=== PATIENT | male | born 1960 | race African-American/Black ===

== ENCOUNTER 2018-09-13 22:28 | Inpatient (IN) | payer MEDICAID ==
[~2018-09-13] VITALS: Ht 180.3 cm; Wt 97.5 kg
[2018-09-13] MEDS ORDERED: KETOROLAC 30MG/ML VIAL IM ONE (23:15)
[2018-09-13 23:31] LABS: BASOPHILS % 0.4 % (0.0-2.0); HEMATOCRIT. 39.8 % (42.0-52.0); LYMPHOCYTES % 45.6 % (20.0-50.0); MEAN CORPUSCULAR HEMOGLOBIN 37.7 pg (28.0-32.0); MEAN CORPUSCULAR VOLUME 107.2 fL (80.0-94.0); MEAN PLATELET VOLUME 7.7 fl (7.4-10.4); MONOCYTES % 13.3 % (2.0-8.0); NEUTROPHILS % 36.7 % (40.0-76.0); PLATELET 106 x1000/uL (130-400); RED BLOOD CELL COUNT 3.72 mill/uL (4.7-6.1); RED CELL DISTRIBUTION WIDTH 13.9 % (11.6-14.6)
[2018-09-13 23:37] LABS: CHLORIDE 107 mEq/L (98-107)
[2018-09-14] MEDS ORDERED: ENOXAPARIN 80MG/0.8ML SYR SUBCUT ONE (00:15)
[2018-09-14 03:10] VITALS: BP 141/82
[2018-09-14 04:00] VITALS: BP 141/82
[2018-09-14] MEDS ORDERED: ASPI-1393 MT (04:02)
[2018-09-14] MEDS ORDERED: ALBU6.7H9 INH (04:02)
[2018-09-14] MEDS ORDERED: LISI-604 PO (04:02)
[2018-09-14] MEDS ORDERED: HYDR12.54 MT (04:02)
[2018-09-14] MEDS ORDERED: PHEN100C12 PO (04:02)
[2018-09-14] MEDS ORDERED: AMLO10TA80 MT (04:02)
[2018-09-14] MEDS ORDERED: LEVE500T19 MT (04:02)
[2018-09-14] MEDS ORDERED: IPRATROPIUM/ALBUTEROL 0.5-3(2.5)MG/3ML NEB HHN PRN (04:30)
[2018-09-14] MEDS ORDERED: ACETAMINOPHEN 325MG TABLET PO PRN (04:30)
[2018-09-14 08:00] VITALS: BP 143/84
[2018-09-14] MEDS: LEVETIRACETAM 500MG TABLET PO SCH ×2 (08:17→17:22)
[2018-09-14] MEDS: LISINOPRIL 20MG TABLET PO SCH (08:18)
[2018-09-14] MEDS: HYDROCHLOROTHIAZIDE 12.5MG CAPSULE PO SCH (08:18)
[2018-09-14] MEDS: AMLODIPINE 10MG TABLET PO SCH (08:18)
[2018-09-14 08:26] LABS: HEMATOCRIT. 37.7 % (42.0-52.0); MEAN CORPUSCULAR HEMOGLOBIN 37.2 pg (28.0-32.0); MEAN CORPUSCULAR VOLUME 108.1 fL (80.0-94.0); MEAN PLATELET VOLUME 7.9 fl (7.4-10.4); PLATELET 221 x1000/uL (130-400); RED BLOOD CELL COUNT 3.49 mill/uL (4.7-6.1); RED CELL DISTRIBUTION WIDTH 14.6 % (11.6-14.6)
[2018-09-14 08:47] LABS: BG BASE EXCESS -0.5 mmol/L (-2.0-2.0); BG CARBOXYHEMOGLOBIN 0.7 % (0.5-1.5); BG DEOXYHEMOGLOBIN 2.3 % (0.0-5.0); BG FRACTION INSPIRED OXYGEN 21; BG HCO3 ACT 22.1 mmol/L (22.0-26.0); BG METHEMOGLOBIN 0.3 % (0.0-1.5); BG OXYGEN SATURATION 97.7 % (92.0-98.5); BG OXYHEMOGLOBIN 96.7 % (94.0-97.0); BG PCO2 30.6 mmHg (35.0-45.0); BG PH 7.477 (7.350-7.450); BG PO2 106.2 mmHg (75.0-100.0); BG SAMPLE SITE RIGHT RADIAL; BG TOTAL HEMOGLOBIN 13.3 g/dL (12.0-18.0); BG VENT MODE ROOM AIR
[2018-09-14 08:52] LABS: CHLORIDE 105 mEq/L (98-107)
[2018-09-14] MEDS ORDERED: HYDROCHLOROTHIAZIDE PO SCH (09:00)
[2018-09-14] MEDS ORDERED: IOHEXOL-350 100 ML BOTTLE ONE (09:22)
[2018-09-14] MEDS: APIXABAN 5 MG TABLET PO SCH ×2 (09:51→21:47)
[2018-09-14 12:00] VITALS: BP_SYST 129; BP_SYST 138; BP_DIAS 74; BP_DIAS 75
[2018-09-14] MEDS ORDERED: ENOXAPARIN 100MG/ML SYR SUBCUT SCH (14:00)
[2018-09-14] MEDS ORDERED: IPRATROPIUM/ALBUTEROL 0.5-3(2.5)MG/3ML NEB INH PRN (15:15)
[2018-09-14] MEDS ORDERED: ONDANSETRON HCL 4MG/2ML INJ IV PRN (15:15)
[2018-09-14] MEDS ORDERED: MAGNESIUM/ALUMINUM HYDROXIDE/SIMETHICONE 30ML UDC PO PRN (15:15)
[2018-09-14] MEDS ORDERED: CLONIDINE 0.1MG TABLET PO PRN (15:15)
[2018-09-14] MEDS ORDERED: GUAIFENESIN 200MG/10ML SUGAR FREE UDC PO PRN (15:15)
[2018-09-14 16:00] VITALS: BP 116/71
[2018-09-14 16:40] LABS: PLATELET ESTIMATE NORMAL
[2018-09-14] MEDS: ACETAMINOPHEN 325MG TABLET PO PRN (17:24)
[2018-09-14 20:00] VITALS: BP 122/71
[2018-09-14] MEDS ORDERED: PHENYTOIN SODIUM EXTENDED 100MG CAPSULE PO SCH ×2 (21:00)
[2018-09-14] MEDS: PHENYTOIN SODIUM EXTENDED 100MG CAPSULE PO SCH (21:48)
[2018-09-15] VITALS: BP 111/73
[2018-09-15 04:00] VITALS: BP 113/73
[2018-09-15 08:00] VITALS: BP 127/78
[2018-09-15] MEDS: AMLODIPINE 10MG TABLET PO SCH (09:13)
[2018-09-15] MEDS: HYDROCHLOROTHIAZIDE 12.5MG CAPSULE PO SCH (09:13)
[2018-09-15] MEDS: LISINOPRIL 20MG TABLET PO SCH (09:14)
[2018-09-15] MEDS: ARIPIPRAZOLE 2MG TABLET PO SCH (09:14)
[2018-09-15] MEDS: LEVETIRACETAM 500MG TABLET PO SCH ×2 (09:15→17:03)
[2018-09-15] MEDS: ACETAMINOPHEN 325MG TABLET PO PRN (09:15)
[2018-09-15] MEDS: APIXABAN 5 MG TABLET PO SCH ×2 (09:19→20:59)
[2018-09-15] MEDS ORDERED: DEXTROSE 50% WATER 50ML SYRINGE IV NR (10:45)
[2018-09-15 11:34] VITALS: BP 141/84
[2018-09-15 15:38] VITALS: BP 114/70
[2018-09-15 20:00] VITALS: BP 113/69
[2018-09-15] MEDS: PHENYTOIN SODIUM EXTENDED 100MG CAPSULE PO SCH (21:00)
[2018-09-16] VITALS: BP 101/68
[2018-09-16] MEDS: ACETAMINOPHEN 325MG TABLET PO PRN (02:10)
[2018-09-16 04:00] VITALS: BP 119/74
[2018-09-16 08:00] VITALS: BP 130/78
[2018-09-16] MEDS: HYDROCHLOROTHIAZIDE 12.5MG CAPSULE PO SCH (08:50)
[2018-09-16] MEDS: LEVETIRACETAM 500MG TABLET PO SCH ×2 (08:50→16:17)
[2018-09-16] MEDS: AMLODIPINE 10MG TABLET PO SCH (08:51)
[2018-09-16] MEDS: ARIPIPRAZOLE 2MG TABLET PO SCH (08:51)
[2018-09-16] MEDS: APIXABAN 5 MG TABLET PO SCH ×2 (08:52→20:52)
[2018-09-16] MEDS: LISINOPRIL 20MG TABLET PO SCH (09:00)
[2018-09-16] MEDS ORDERED: KETOROLAC 30MG/ML VIAL IV PRN (10:30)
[2018-09-16] MEDS: HYDROCODONE/ACETAMINOPHEN 5/325MG TABLET PO PRN ×2 (10:59→18:32)
[2018-09-16 11:39] VITALS: BP 131/80
[2018-09-16 16:00] VITALS: BP 104/48
[2018-09-16 18:03] LABS: BASOPHILS % 0.9 % (0.0-2.0); EOSINOPHILS % 2.6 % (0.0-5.0); HEMATOCRIT. 38.7 % (42.0-52.0); HEMOGLOBIN. 13.1 g/dL (14.0-18.0); LYMPHOCYTES % 24.2 % (20.0-50.0); MEAN CORPUSCULAR HEMOGLOBIN 36.4 pg (28.0-32.0); MEAN CORPUSCULAR VOLUME 107.9 fL (80.0-94.0); MEAN PLATELET VOLUME 8.7 fl (7.4-10.4); MONOCYTES % 12.7 % (2.0-8.0); NEUTROPHILS % 59.6 % (40.0-76.0); PLATELET 176 x1000/uL (130-400); RED BLOOD CELL COUNT 3.59 mill/uL (4.7-6.1); RED CELL DISTRIBUTION WIDTH 14.4 % (11.6-14.6)
[2018-09-16 18:12] LABS: CHLORIDE 102 mEq/L (98-107)
[2018-09-16 20:00] VITALS: BP 109/63
[2018-09-16] MEDS: PHENYTOIN SODIUM EXTENDED 100MG CAPSULE PO SCH (20:52)
[2018-09-17] VITALS: BP 123/76
[2018-09-17 04:00] VITALS: BP 123/73
[2018-09-17 06:32] LABS: CHLORIDE 102 mEq/L (98-107)
[2018-09-17 06:34] LABS: HEMATOCRIT. 37.6 % (42.0-52.0); MEAN CORPUSCULAR VOLUME 106.9 fL (80.0-94.0); MEAN PLATELET VOLUME 8.2 fl (7.4-10.4); PLATELET 210 x1000/uL (130-400); RED BLOOD CELL COUNT 3.52 mill/uL (4.7-6.1); RED CELL DISTRIBUTION WIDTH 14.4 % (11.6-14.6)
[2018-09-17 08:00] VITALS: BP 126/87
[2018-09-17] MEDS: LEVETIRACETAM 500MG TABLET PO SCH ×2 (08:27→16:56)
[2018-09-17] MEDS: AMLODIPINE 10MG TABLET PO SCH (08:27)
[2018-09-17] MEDS: ARIPIPRAZOLE 2MG TABLET PO SCH (08:27)
[2018-09-17] MEDS: LISINOPRIL 20MG TABLET PO SCH (08:28)
[2018-09-17] MEDS: HYDROCHLOROTHIAZIDE 12.5MG CAPSULE PO SCH (08:28)
[2018-09-17] MEDS: APIXABAN 5 MG TABLET PO SCH ×2 (08:29→22:15)
[2018-09-17] MEDS: HYDROCODONE/ACETAMINOPHEN 5/325MG TABLET PO PRN ×2 (08:29→16:57)
[2018-09-17 12:00] VITALS: BP 107/75
[2018-09-17 13:22] LABS: PLATELET ESTIMATE NORMAL
[2018-09-17 16:00] VITALS: BP 118/76
[2018-09-17 20:00] VITALS: BP 108/71
[2018-09-17] MEDS: PHENYTOIN SODIUM EXTENDED 100MG CAPSULE PO SCH (22:15)
[2018-09-18] VITALS: BP 103/62
[2018-09-18 04:00] VITALS: BP 110/70
[2018-09-18 06:19] LABS: BASOPHILS % 0.9 % (0.0-2.0); EOSINOPHILS % 3.4 % (0.0-5.0); HEMATOCRIT. 43.5 % (42.0-52.0); HEMOGLOBIN. 14.6 g/dL (14.0-18.0); LYMPHOCYTES % 27.7 % (20.0-50.0); MEAN CORPUSCULAR HEMOGLOBIN 36.9 pg (28.0-32.0); MEAN CORPUSCULAR VOLUME 109.8 fL (80.0-94.0); MEAN PLATELET VOLUME 8.1 fl (7.4-10.4); MONOCYTES % 14.3 % (2.0-8.0); NEUTROPHILS % 53.7 % (40.0-76.0); PLATELET 222 x1000/uL (130-400); RED BLOOD CELL COUNT 3.96 mill/uL (4.7-6.1); RED CELL DISTRIBUTION WIDTH 14.4 % (11.6-14.6)
[2018-09-18 06:20] LABS: CHLORIDE 100 mEq/L (98-107)
[2018-09-18 08:00] VITALS: BP 115/73
[2018-09-18] MEDS: ARIPIPRAZOLE 2MG TABLET PO SCH (08:46)
[2018-09-18] MEDS: LEVETIRACETAM 500MG TABLET PO SCH ×2 (08:46→16:13)
[2018-09-18] MEDS: APIXABAN 5 MG TABLET PO SCH ×2 (08:46→21:35)
[2018-09-18] MEDS: LISINOPRIL 20MG TABLET PO SCH (08:46)
[2018-09-18] MEDS: AMLODIPINE 10MG TABLET PO SCH (08:47)
[2018-09-18] MEDS: HYDROCHLOROTHIAZIDE 12.5MG CAPSULE PO SCH (09:15)
[2018-09-18] MEDS: HYDROCODONE/ACETAMINOPHEN 5/325MG TABLET PO PRN ×2 (11:40→19:31)
[2018-09-18 11:50] VITALS: BP 116/77
[2018-09-18 16:00] VITALS: BP 103/53
[2018-09-18] MEDS: PHENYTOIN SODIUM EXTENDED 100MG CAPSULE PO SCH (21:35)
[2018-09-19] VITALS: BP 124/70
[2018-09-19 04:00] VITALS: BP 125/71
[2018-09-19] MEDS: HYDROCODONE/ACETAMINOPHEN 5/325MG TABLET PO PRN ×2 (05:07→10:45)
[2018-09-19 08:00] VITALS: BP 136/83
[2018-09-19] MEDS: LEVETIRACETAM 500MG TABLET PO SCH ×2 (10:37→15:52)
[2018-09-19] MEDS: ARIPIPRAZOLE 2MG TABLET PO SCH (10:37)
[2018-09-19] MEDS: HYDROCHLOROTHIAZIDE 12.5MG CAPSULE PO SCH (10:37)
[2018-09-19] MEDS: AMLODIPINE 10MG TABLET PO SCH (10:37)
[2018-09-19] MEDS: LISINOPRIL 20MG TABLET PO SCH (10:38)
[2018-09-19 12:00] VITALS: BP 120/80
[2018-09-19] MEDS: APIXABAN 5 MG TABLET PO SCH (15:52)
[2018-09-19 16:00] VITALS: BP 130/84
[2018-09-19 18:54] LABS: HEMATOCRIT 40.1 % (42.0-52.0); HEMOGLOBIN 13.7 g/dL (14.0-18.0); MEAN CORPUSCULAR HEMOGLOBIN 36.9 pg (28.0-32.0); MEAN CORPUSCULAR VOLUME 107.8 fL (80.0-94.0); PLATELET 210 x1000/uL (130-400); RED BLOOD CELL COUNT 3.72 mill/uL (4.7-6.1); RED CELL DISTRIBUTION WIDTH 14.6 % (11.6-14.6)
[2018-09-19 19:00] LABS: CHLORIDE 101 mEq/L (98-107)
== END 2018-09-19 19:20 | DRG 197 ==
LOC: ER 22:48 → 6EST 09-14 01:33 → EDBEDREQTM 09-14 01:37 → EDBEDREQ 09-14 01:37 → ENRESERV 09-14 01:49
PROVIDERS: ADMIT Internal Medicine; ATTEND Internal Medicine
DX: I82.433 Acute embolism and thrombosis of popliteal vein, bilateral (principal); D68.59 Other primary thrombophilia; K75.9 Inflammatory liver disease, unspecified; D64.9 Anemia, unspecified; G40.909 Epilepsy, unspecified, not intractable, without status epilepticus; I10 Essential (primary) hypertension; M17.0 Bilateral primary osteoarthritis of knee; M06.9 Rheumatoid arthritis, unspecified; F32.9 Major depressive disorder, single episode, unspecified; Z96.659 Presence of unspecified artificial knee joint; Z96.653 Presence of artificial knee joint, bilateral; M19.90 Unspecified osteoarthritis, unspecified site; E16.2 Hypoglycemia, unspecified; Z82.49 Family history of ischemic heart disease and other diseases of the circulatory system; Z83.3 Family history of diabetes mellitus; Z79.01 Long term (current) use of anticoagulants; Z59.0 Homelessness; Z98.84 Bariatric surgery status; Z90.49 Acquired absence of other specified parts of digestive tract; Z79.899 Other long term (current) drug therapy; Z91.19 Patient's noncompliance with other medical treatment and regimen
CPT/HCPCS: 36415; 36600; 71045; 71275; 80048; 82375; 82805; 82962; 84443; 84484; 85027; 86430; 93005; 93970; 97116; 97162; 99285; J1650; J1885; Q9967

== ENCOUNTER 2018-11-19 19:01 | Emergency (ER) | payer MEDICAID ==
[~2018-11-19] VITALS: Ht 180.3 cm; Wt 105.0 kg
[~2018-11-19 19:01] MED LIST: ALBU6.7H9 INH; AMLO10TA80 MT; ASPI-1393 MT; HYDR12.54 MT; LEVE500T19 MT; LISI-604 PO; PHEN100C12 PO
[2018-11-19 19:08] VITALS: BP 146/90
== END 2018-11-19 22:25 | disposition left against medical advice (07) ==
LOC: ER 19:01
DX: Z53.21 Procedure and treatment not carried out due to patient leaving prior to being seen by health care provider (principal)

== ENCOUNTER 2018-11-20 00:27 | Emergency (ER) | payer MEDICAID ==
[~2018-11-20] VITALS: Ht 180.3 cm; Wt 106.0 kg
[2018-11-20] MEDS ORDERED: APIXABAN 5 MG TABLET PO STA (07:05)
[2018-11-20] MEDS ORDERED: LISINOPRIL 20MG TABLET PO ONE (07:15)
[2018-11-20] MEDS ORDERED: ASPIRIN 81MG TABLET PO ONE (07:15)
[2018-11-20] MEDS ORDERED: HYDROCHLOROTHIAZIDE 12.5MG CAPSULE PO ONE (07:15)
[2018-11-20] MEDS ORDERED: AMLODIPINE 10MG TABLET PO ONE (07:15)
[2018-11-20] MEDS ORDERED: LEVETIRACETAM 500MG TABLET PO ONE (07:15)
[2018-11-20 12:00] VITALS: BP 135/87
== END 2018-11-20 12:00 | disposition home or self-care (01) ==
LOC: ER 01:43
DX: M25.562 Pain in left knee (principal); Z91.81 History of falling; Z59.0 Homelessness
CPT/HCPCS: 73562; 99284; Z7610

== ENCOUNTER 2019-11-19 03:49 | Emergency (ER) | payer MEDICAID ==
[~2019-11-19] VITALS: Ht 180.3 cm; Wt 104.0 kg
[~2019-11-19 03:49] MED LIST changes: -ASPI-1393 MT; +ASPI-1497 MT
[2019-11-19] MEDS ORDERED: LEVETIRACETAM 1000MG/100ML 100 ML IV ONE (05:30)
[2019-11-19 06:00] LABS: BASOPHILS % 0.4 % (0.0-2.0); EOSINOPHILS % 0.9 % (0.0-5.0); HEMATOCRIT. 38.6 % (42.0-52.0); HEMOGLOBIN. 13.4 g/dL (14.0-18.0); LYMPHOCYTES % 16.9 % (20.0-50.0); MEAN CORPUSCULAR HEMOGLOBIN 37.6 pg (28.0-32.0); MEAN CORPUSCULAR VOLUME 108.7 fL (80.0-94.0); MEAN PLATELET VOLUME 8.6 fl (7.4-10.4); MONOCYTES % 8.9 % (2.0-8.0); NEUTROPHILS % 72.9 % (40.0-76.0); PLATELET 219 x1000/uL (130-400); RED BLOOD CELL COUNT 3.55 mill/uL (4.7-6.1); RED CELL DISTRIBUTION WIDTH 15.8 % (11.6-14.6)
[2019-11-19 06:07] LABS: CHLORIDE 102 mEq/L (98-107)
[2019-11-19 06:12] LABS: ETHANOL BLOOD 206 mg/dL
[2019-11-19 06:23] LABS: CLARITY URINE CLEAR (CLEAR); COLOR URINE YELLOW (YELLOW); KETONES URINE NEGATIVE (NEGATIVE); LEUKOCYTE ESTERASE URINE NEGATIVE (NEGATIVE); NITRITE URINE NEGATIVE (NEGATIVE); OCCULT BLOOD URINE 1+ (NEGATIVE); PH URINE 5.5 (4.5-8.0); PROTEIN URINE NEGATIVE (NEGATIVE); SPECIFIC GRAVITY URINE 1.009 (1.005-1.030); UROBILINOGEN URINE 0.2 E.U./dL (0.2-1.0)
[2019-11-19 06:30] VITALS: BP 127/83
[2019-11-19 06:33] LABS: *AMPHETAMINES SCREEN URINE NEGATIVE (NEGATIVE); *BARBITURATES SCREEN URINE NEGATIVE (NEGATIVE); *BENZODIAZEPINES SCREEN URINE NEGATIVE (NEGATIVE); *COCAINE SCREEN URINE NEGATIVE (NEGATIVE); OPIATES URINE SCREEN NEGATIVE (NEGATIVE); PHENCYCLIDINE URINE SCREEN NEGATIVE (NEGATIVE)
[2019-11-19 06:35] LABS: CANNABINOID URINE SCREEN PRESUMTIVE POSITIVE (NEGATIVE)
[2019-11-19 06:36] LABS: METHADONE URINE SCREEN NEGATIVE (NEGATIVE)
[2019-11-19] MEDS ORDERED: LIDOCAINE 1%/EPI 1:100,000 10 ML VIAL IJ ONE (06:45)
== END 2019-11-19 07:35 | disposition home or self-care (01) ==
LOC: ER 03:49
DX: G40.909 Epilepsy, unspecified, not intractable, without status epilepticus (principal); S01.01XA Laceration without foreign body of scalp, initial encounter; W01.198A Fall on same level from slipping, tripping and stumbling with subsequent striking against other object, initial encounter; Y93.01 Activity, walking, marching and hiking; Y92.010 Kitchen of single-family (private) house as the place of occurrence of the external cause; I10 Essential (primary) hypertension; F10.129 Alcohol abuse with intoxication, unspecified; Y90.7 Blood alcohol level of 200-239 mg/100 ml; F12.90 Cannabis use, unspecified, uncomplicated; Z91.14 Patient's other noncompliance with medication regimen
CPT/HCPCS: 12001; 36415; 70450; 80053; 80305; 80320; 81003; 84484; 85025; 93005; 96365; 99285; J1953; J3490; G0480

== ENCOUNTER 2019-12-09 08:29 | Emergency (ER) | payer MEDICAID ==
[~2019-12-09] VITALS: Ht 180.3 cm; Wt 104.0 kg
[2019-12-09 08:37] VITALS: BP 135/75
== END 2019-12-09 09:19 | disposition home or self-care (01) ==
LOC: ER 08:29
DX: Z48.02 Encounter for removal of sutures (principal); I10 Essential (primary) hypertension; G40.909 Epilepsy, unspecified, not intractable, without status epilepticus; F12.90 Cannabis use, unspecified, uncomplicated
CPT/HCPCS: 99281

== ENCOUNTER 2022-11-18 09:12 | Emergency (ER) | payer MEDICARE, MEDICAID ==
[~2022-11-18] VITALS: Ht 177.8 cm; Wt 100.0 kg
[~2022-11-18 09:12] MED LIST changes: +ALBU6.7H3 INH; -ALBU6.7H9 INH; -LISI-604 PO; +LISI20TA31 PO
[2022-11-18 09:16] VITALS: BP 137/111; PULSE 95; RESP 20; TEMP 98.8; O2SAT 96
[2022-11-18 10:02] LABS: BASOPHILS % 0.9 % (0.0-2.0); EOSINOPHILS % 1.4 % (0.0-5.0); HEMATOCRIT. 38.4 % (42.0-52.0); HEMOGLOBIN. 13.1 g/dL (14.0-18.0); LYMPHOCYTES % 29.6 % (20.0-50.0); MEAN CORPUSCULAR HEMOGLOBIN 38.1 pg (28.0-32.0); MEAN CORPUSCULAR HGB CONC 34.1 g/dL (31.0-37.0); MEAN CORPUSCULAR VOLUME 111.8 fL (80.0-94.0); MEAN PLATELET VOLUME 7.2 fl (7.4-10.4); MONOCYTES % 14.6 % (2.0-8.0); NEUTROPHILS % 53.5 % (40.0-76.0); PLATELET 393 x1000/uL (130-400); RED BLOOD CELL COUNT 3.43 mill/uL (4.7-6.1); RED CELL DISTRIBUTION WIDTH 18.3 % (11.6-14.6); WHITE BLOOD COUNT 3.3 x1000/uL (4.5-11.0)
[2022-11-18 10:03] LABS: ADD RBC MORPHOLOGY YES; DIFFERENTIAL COMMENT 1
[2022-11-18] MEDS ORDERED: PANTOPRAZOLE SODIUM 40 MG/VIAL IV ONE (10:15)
[2022-11-18] MEDS ORDERED: SODIUM CHLORIDE 0.9% 1,000 ML IV ONE (10:15)
[2022-11-18] MEDS ORDERED: ONDANSETRON HCL 4MG/2ML INJ IV ONE (10:15)
[2022-11-18 10:16] LABS: CHLORIDE 107 mEq/L (98-107); INDEX HEMOLYSI 1 (1-3); INDEX ICTERIC 1 (1-4); INDEX LIPEMIC 1 (1-3); POTASSIUM 3.1 mEq/L (3.5-5.1); SODIUM 140 mEq/L (136-145)
[2022-11-18 10:27] LABS: ALANINE AMINOTRANSFERASE 42 IU/L (13-61); ALBUMIN 3.1 g/dL (3.4-5.0); ASPARTATE AMINOTRANSFERASE 53 IU/L (15-37); BILIRUBIN TOTAL 0.6 mg/dL (0.1-1.0); CALCIUM 8.7 mg/dL (8.5-10.1); CARBON DIOXIDE 22 mEq/L (21-32); CREATININE 0.9 mg/dL (0.6-1.3); GLUCOSE 99 mg/dL (70-105); PROTEIN TOTAL 7.1 g/dL (6.0-8.3); UREA NITROGEN BLOOD 18 mg/dL (7-21)
[2022-11-18 10:38] LABS: ETHANOL BLOOD 308 mg/dL (-10)
[2022-11-18 12:32] LABS: ANISOCYTOSIS 2+; PLATELET ESTIMATE NORMAL
[2022-12-03] MEDS ORDERED: HYDR-4001 MT (12:24)
[2022-12-03] MEDS ORDERED: POTA8CAP20 MT (12:24)
== END 2022-11-18 11:33 | disposition left against medical advice (07) ==
LOC: ER 09:12
DX: F10.129 Alcohol abuse with intoxication, unspecified (principal); F12.10 Cannabis abuse, uncomplicated; I10 Essential (primary) hypertension; Z86.59 Personal history of other mental and behavioral disorders; Y90.8 Blood alcohol level of 240 mg/100 ml or more
CPT/HCPCS: 80053; 80320; 83690; 85025; 36415; 96361; 96374; 96375; 99284; J2405; C9113; J7030; G0480